=== PATIENT | female | born 1995 | race Caucasian/White ===

== ENCOUNTER 2016-09-05 20:05 | Emergency (ER) | payer MEDICAID, OTHER ==
[~2016-09-05] VITALS: Ht 170.2 cm; Wt 65.0 kg
[2016-09-05 20:07] VITALS: BP 120/63; PULSE 76; RESP 16; TEMP 98.4; O2SAT 98
[2016-09-05] MEDS ORDERED: PENI500T PO (20:21)
--- NOTE | 2016-09-05 20:24 | PD ---
HPI Chief Complaint: ENT Complaint Time Seen by Provider: 20:22 Travel History International Travel<30 days: No Contact w/Intl Traveler<30days: No Traveled to known affect area: No History of Present Illness HPI 20-year-old white female presents to emergency department with a one-to two-day history of sore throat. She states that this is similar to when she has had strep throat in the past. She has had some mild ear discomfort, sore throat, difficulty swallowing and general malaise. She denies any fever chills. No shortness of breath or wheezing. No nausea vomiting. No bowel pain or diarrhea. No dysuria or frequency. No rash PFSH Past Medical History Narrative Medical Strep throat Medical other: Yes ([employer] CHILD) Immunizations Current: Yes Tetanus Vaccination: > 5 Years Influenza Vaccination: No ?: Unknown LMP: 09/05/16 : 0 Past Surgical History Surgical History: No Previous Surgery Social History Alcohol Use: No Tobacco Use: No Substance Use: No Allergies-Medications (Allergen,Severity, Reaction): Coded Allergies: No Known Allergies (Unverified , 09/05/16) Reported Meds & Prescriptions Reported Meds & Active Scripts Active Penicillin V Potassium 500 Mg Tab 500 Mg PO Q12HR Review of Systems Except as stated in HPI: all other systems reviewed are Neg Physical Exam Narrative GENERAL: Well-developed, well-nourished in no acute distress. Nontoxic appearing. HEAD: Normocephalic, atraumatic. EYES: Pupils equal round and reactive. Extraocular motions intact. No scleral icterus. No injection or drainage. ENT: TMs clear without erythema. The external auditory canals clear. Nose: clear . Posterior pharynx is erythematous and moist. Positive tonsillar edema with white exudate. Uvula midline. Airway patent. NECK: Trachea midline.Supple, nontender, moves head freely. No central bony tenderness or spasm. Few tonsillar tender swollen adenopathy CARDIOVASCULAR: Regular rate and rhythm without murmurs, gallops, or rubs. RESPIRATORY: Clear to auscultation. Breath sounds equal bilaterally. No wheezes , rales, or rhonchi. GASTROINTESTINAL: Abdomen soft, non-tender, nondistended. No hepato-splenomegaly , or palpable masses. No guarding. EXTREMITIES: No clubbing, cyanosis, or edema. No joint tenderness, effusion, or edema noted. BACK: Nontender without deformity or crepitance. No flank tenderness. Data Data Last Documented VS Vital Signs Date Time Temp Pulse Resp B/P Pulse Ox O2 Delivery O2 Flow Rate FiO2 09/05/16 20:07 98.4 76 16 120/63 98 MDM Medical Decision Making Medical Screen Exam Complete: Yes Emergency Medical Condition: Yes Medical Record Reviewed: Yes Differential Diagnosis MDM: High Differential diagnoses: Strep throat, viral pharyngitis, mono, peritonsillar abscess, retropharyngeal abscess, Young's angina Narrative Course Patient is given amoxicillin 1 g by mouth. This acute pharyngitis Diagnosis Primary Impression: Acute pharyngitis Qualified Code: J02.9 - Acute pharyngitis, unspecified etiology Patient Instructions: General Instructions Departure Forms: Tests/Procedures, Work Release Special Instructions: No work 1-2 days. Additional Instructions: Rest. Force fluids. Saltwater gargles. Tylenol and Advil. Chloraseptic [place] Cepastat lozenge. Pen-Vee K. Follow-up with a primary care doctor in one week. Return to the ER if any problems. Med/Other Pt SpecificInfo: Prescription(s) given Scripts Penicillin V Potassium 500 Mg Csm179 Mg PO Q12HR #20 TAB Prov:Fany Rodriguez MD 09/05/16 Disposition: 01 DISCHARGE HOME Condition: Stable Joo Vo Sep 05, 2016 20:24
[2016-09-05] MEDS ORDERED: AMOXICILLIN (TRIHYDRATE) 500 MG CAP PO ONE (20:30)
== END 2016-09-05 21:02 | disposition home or self-care (01) ==
LOC: NEPK 20:05
DX: J02.9 Acute pharyngitis, unspecified (principal)
CPT/HCPCS: 99282